=== PATIENT | female | born 1995 ===

== ENCOUNTER 2018-01-23 12:24 | Emergency (ER) | payer MEDICAID, OTHER ==
[2018-01-23 12:24] VITALS: BMI 28.3
--- NOTE | 2018-01-23 13:06 | ED PDOC ---
Arrival/HPI - General Chief Complaint: GI Problem Time Seen by Provider: 01/23/18 12:34 Historian: Patient - History of Present Illness Narrative History of Present Illness (Text): 01/23/18 13:00 A 22 year old female presents to the emergency department complaining of non- bilious non-bloody vomiting. Patient denies any pain or discomfort, she is currently not vomiting in the emergency room. Patient reports her last menstrual period was on December 13. She denies taking a home test. Patient denies any fever, chills, diarrhea, abdominal pain, chest pain, shortness of breath or any other complaints. Past Medical History - Provider Review Nursing Documentation Reviewed: Yes - Infectious Disease Hx of Infectious Diseases: None - Tetanus Immunization Tetanus Immunization: Unknown - Past Medical History Past Medical History: No Previous - Cardiac Hx Cardiac Disorders: No - Pulmonary Hx Respiratory Disorders: Yes Hx Asthma: Yes - Neurological Hx Neurological Disorder: No - HEENT Hx HEENT Disorder: No - Renal Hx Renal Disorder: No - Endocrine/Metabolic Hx Endocrine Disorders: No - Hematological/Oncological Hx Blood Disorders: No - Integumentary Hx Dermatological Disorder: No - Musculoskeletal/Rheumatological Hx Musculoskeletal Disorders: No - Gastrointestinal Hx Gastrointestinal Disorders: No - Genitourinary/Gynecological Hx Genitourinary Disorders: No - Psychiatric Hx Psychophysiologic Disorder: No Hx Substance Use: No - Past Surgical History Past Surgical History: No Previous - Anesthesia Hx Anesthesia: No - Suicidal Assessment Feels Threatened In Home Enviroment: No Family/Social History - Physician Review Nursing Documentation Reviewed: Yes Family/Social History: No Known Family HX Smoking Status: Never Smoked Hx Alcohol Use: Yes (socially) Hx Substance Use: No Hx Substance Use Treatment: No Allergies/Home Meds Allergies/Adverse Reactions: Allergies No Known Allergies Allergy (Verified 01/23/18 12:25) Home Medications: Home Meds Medication Instructions Recorded Confirmed No Known Home Med 01/23/18 01/23/18 Review of Systems - Physician Review All systems were reviewed & negative as marked: Yes - Review of Systems Constitutional: absent: Fevers, Night Sweats Respiratory: absent: SOB Cardiovascular: absent: Chest Pain Gastrointestinal: Vomiting. absent: Abdominal Pain, Diarrhea Physical Exam Vital Signs Reviewed: Yes Vital Signs Temp Pulse Resp BP Pulse Ox 01/23/18 17:27 98.5 F 104 H 18 118/64 99 01/23/18 12:26 98.8 F 103 H 16 133/81 95 Temperature: Afebrile Blood Pressure: Normal Pulse: Tachycardic Respiratory Rate: Normal Appearance: Positive for: Well-Appearing, Non-Toxic, Comfortable Pain Distress: None Mental Status: Positive for: Alert and Oriented X 3 - Systems Exam Head: Present: Atraumatic, Normocephalic Pupils: Present: PERRL Extroacular Muscles: Present: EOMI Conjunctiva: Present: Normal Mouth: Present: Moist Mucous Membranes Neck: Present: Normal Range of Motion Respiratory/Chest: Present: Clear to Auscultation, Good Air Exchange. No: Respiratory Distress, Accessory Muscle Use Cardiovascular: Present: Regular Rate and Rhythm, Normal S1, S2. No: Murmurs Abdomen: Present: Normal Bowel Sounds. No: Tenderness, Distention, Peritoneal Signs Back: Present: Normal Inspection Upper Extremity: Present: Normal Inspection. No: Cyanosis, Edema Lower Extremity: Present: Normal Inspection. No: Edema Neurological: Present: GCS=15, CN II-XII Intact, Speech Normal Skin: Present: Warm, Dry, Normal Color. No: Rashes Psychiatric: Present: Alert, Oriented x 3, Normal Insight, Normal Concentration Medical Decision Making ED Course and Treatment: 01/23/18 13:00 Impression: A 22 year old female with vomiting. Last LMP . Plan: -- Urinalysis -- Reassess and disposition Progress Notes: 01/23/18 13:30 Labs reviewed, urine ketones greater than 80 and urine specific gravity greater than 0.030. Will draw blood and start IV fluids. Will attempt to see if patient can tolerate PO fluids. Report Date : 01/23/2018 17:33:08 PROCEDURE: OB Pelvic Ultrasound Dictator : Tobi Og MD IMPRESSION: Single live intrauterine gestation of approximately 6 weeks 2 days gestational age. No subchorionic hemorrhage. Unremarkable ovaries. No additional significant abnormality. - Lab Interpretations Lab Results: 01/23/18 14:40 01/23/18 15:40 Lab Results 01/23/18 15:40: Sodium 138, Potassium 3.7, Chloride 109 H, Carbon Dioxide 16 L, Anion Gap 17, BUN 5 L, Creatinine 0.5 L, Est GFR ( Amer) > 60, Est GFR ( Non-Af Amer) > 60, Random Glucose 75, Calcium 9.5, Total Bilirubin 0.3, AST 32, ALT 15, Alkaline Phosphatase 59, Total Protein 7.4, Albumin 3.9, Globulin 3.5, Albumin/Globulin Ratio 1.1 01/23/18 14:40: WBC 6.8 D, RBC 3.95, Hgb 11.8 L, Hct 34.7 L, MCV 87.8, MCH 29.9 , MCHC 34.0, RDW 13.6, Plt Count 291, MPV 10.8, Gran % 74.4 H, Lymph % (Auto) 12.7 L, [place] % (Auto) 10.7 H, Eos % (Auto) 2.1, Baso % (Auto) 0.1, Gran # 5.03, Lymph # (Auto) 0.9 L, [place] # (Auto) 0.7 H, Eos # (Auto) 0.1, Baso # (Auto) 0.01 01/23/18 13:15: Urine Color Yellow, Urine Appearance Sl cloudy, Urine pH 6.0, Ur Specific [place] >= 1.030, Urine Protein Trace H, Urine Glucose (UA) Negative , Urine Ketones >=80, Urine Blood Negative, Urine Nitrate Negative, Urine Bilirubin Negative, Urine Urobilinogen 0.2, Ur Leukocyte Esterase Negative, Urine RBC Negative, Urine WBC 1 - 3, Ur Epithelial Cells 1 - 3, Urine Bacteria Mod - RAD Interpretation Radiology Orders: 01/23/18 15:18 OB TRANSVAGINAL [US] Stat - Medication Orders Current Medication Orders: Discontinued Medications Sodium Chloride (Sodium Chloride 0.9%) 1,000 mls @ 999 mls/hr IV .Q1H1M STA Stop: 01/23/18 14:30 Last Admin: 01/23/18 13:59 Dose: 999 mls/hr eMAR Start Stop Document 01/23/18 13:59 [facility] (Rec: 01/23/18 13:59 [facility] [id number]) Intravenous Solution Start Date 01/23/18 Start Time 13:59 End Date 01/23/18 End time 14:59 Total Infusion Time 60 Sodium Chloride (Sodium Chloride 0.9%) 1,000 mls @ 999 mls/hr IV .Q1H1M STA Stop: 01/23/18 14:31 Last Admin: 01/23/18 15:21 Dose: 999 mls/hr eMAR Start Stop Document 01/23/18 15:21 [facility] (Rec: 01/23/18 17:22 [facility] [id number]) Intravenous Solution Start Date 01/23/18 Start Time 15:21 End Date 01/23/18 End time 16:21 Total Infusion Time 60 - PA / CONSTRUCTION MANAGEMENT ASSISTANT / Resident Statement MD/DO has reviewed & agrees with the documentation as recorded. - Scribe Statement The provider has reviewed the documentation as recorded by the Scribe Brea Pandey Provider Scribe Attestation: All medical record entries made by the Scribe were at my direction and personally dictated by me. I have reviewed the chart and agree that the record accurately reflects my personal performance of the history, physical exam, medical decision making, and the department course for this patient. I have also personally directed, reviewed, and agree with the discharge instructions and disposition. Disposition/Present on Arrival - Present on Arrival Any Indicators Present on Arrival: No History of DVT/PE: No History of Uncontrolled Diabetes: No Urinary Catheter: No History of Decub. Ulcer: No History Surgical Site Infection Following: None - Disposition Have Diagnosis and Disposition been Completed?: Yes Diagnosis: Intrauterine Disposition Time: 17:41 Patient Plan: Discharge Patient Problems: Current Active Problems Problem Status Onset Intrauterine Acute Condition: GOOD Discharge Instructions (ExitCare): - The First Month, - The Second Month, - The Third Month, - The Fourth Month, - The Fifth Month, - The Sixth Month, - The Seventh Month, - The Eighth Month, - The Ninth Month, Medications and Additional Instructions: The Ultrasound shows: age (Ultrasound estimated): 6 weeks 2 days Date of delivery (Ultrasound estimated) : 09/16/2018 Heart rate: 126 bpm. Please see your OB doctor later this wee or early next week. Return to us if any problems. Devin- Dr. Barry Pedraza Forms: [employer] (Citizen Of [place])
[2018-01-23 13:26] LABS: URINE BILIRUBIN NEGATIVE (NEGATIVE); URINE BLOOD NEGATIVE (NEGATIVE); URINE GLUCOSE (UA) NEGATIVE (NEGATIVE); URINE LEUKOCYTE ESTERASE NEGATIVE Leu/uL (NEGATIVE); URINE PROTEIN TRACE mg/dL (<30 mg/dL); URINE UROBILINOGEN 0.2 E.U./dL (<1 E.U./dL)
[2018-01-23 13:27] LABS: URINE APPEARANCE SL CLOUDY (CLEAR); URINE COLOR YELLOW (YELLOW)
[2018-01-23 13:30] LABS: URINE RBC NEGATIVE /hpf (0-2)
[2018-01-23] MEDS ORDERED: Sodium Chloride 0.9% 1,000 ML IV STA ×2 (13:30→13:31)
[2018-01-23 13:31] LABS: URINE BACTERIA MOD (NEG)
[2018-01-23 15:04] LABS: BASO # 0.01 K/mm3 (0.0-2.0); BASO % 0.1 % (0.0-3.0); EOS # 0.1 (0.0-0.7); EOS % 2.1 % (1.5-5.0); GRAN # 5.03 (1.4-6.5); GRAN % 74.4 % (50.0-68.0); HEMOGLOBIN 11.8 g/dL (12.0-16.0); LYMPH # 0.9 (1.2-3.4); LYMPH % 12.7 % (22.0-35.0); MEAN CELL VOLUME 87.8 fl (80.0-105.0); MEAN CORPUSCULAR HEMOGLOBIN 29.9 pg (25.0-35.0); MEAN PLATELET VOLUME 10.8 fl (7.0-11.0); MONO # 0.7 (0.1-0.6); MONO % 10.7 % (1.0-6.0); RBC 3.95 10^6/uL (3.5-6.1); RED CELL DISTRIBUTION WIDTH 13.6 % (11.5-14.5); WHITE BLOOD COUNT 6.8 10^3/ul (4.5-11.0)
[2018-01-23 15:49] LABS: ALB/GLOB RATIO 1.1 (1.1-1.8); ALBUMIN 3.9 g/dL (3.0-4.8); ALT/SGPT 15 U/L (7-56); AST/SGOT 32 U/L (14-36); BLOOD UREA NITROGEN 5 mg/dL (7-21); CALCIUM 9.5 mg/dL (8.4-10.5); GFR AFRICAN-AMERICAN > 60; GFR NON-AFRICAN AMERICAN > 60
--- NOTE | 2018-01-23 17:34 | US ---
PROCEDURE: OB Pelvic Ultrasound HISTORY: Viability/age COMPARISON: None available. FINDINGS: UTERUS: Single Live intrauterine gestation. CRL 6 mm equivalent to 6 weeks 1 day. Gestatioin Gestational sac diameter 18 mm equivalent to 6 weeks 1 day gestation age (Ultrasound estimated): 6 weeks 2 days Date of delivery (Ultrasound estimated) : 09/16/2018 Heart rate: 126 bpm. Anita-gestational hemorrhage: None. 3 mm yolk sac visualized. Uterus measures 10.1 x 4.3 x 5.5 cm. No mass CERVIX: Long and closed. No cervical abnormality seen. RIGHT OVARY: Measures 3.3 x 1.9 x 2.7 cm. No mass. Normal flow. LEFT OVARY: Measures 2.0 x 1.5 x 2.3 cm. No mass. Normal flow. FREE FLUID: None. OTHER FINDINGS: None. IMPRESSION: Single live intrauterine gestation of approximately 6 weeks 2 days gestational age. No subchorionic hemorrhage. Unremarkable ovaries. No additional significant abnormality.
[2018-01-24 11:26] VITALS: BP 118/64; PULSE 104; RESP 18; TEMP 98.5; O2SAT 99
== END 2018-01-23 18:54 | disposition home or self-care (01) ==
LOC: ED 12:24
DX: O21.9 Vomiting of pregnancy, unspecified (principal); Z3A.01 Less than 8 weeks gestation of pregnancy
CPT/HCPCS: 76817; 80053; 81001; 81025; 84702; 85025; 96360; 96361; 99284; J7040